=== PATIENT | female | born 1960 | race Caucasian/White ===

== ENCOUNTER 2019-03-24 08:37 | Inpatient (IN) ==
[2019-03-15 20:45] LABS: Basophils # (Auto) 0.08 K/mcL (0.00-0.30); Basophils % (Auto) 0.7 % (0.0-2.0); Eosinophils # (Auto) 0.09 K/mcL (0.00-0.70); Eosinophils % (Auto) 0.7 % (0.0-7.0); Granulocytes % (Auto) 72.9 % (38.0-78.0); Hematocrit 40.5 % (34.1-44.9); Hemoglobin 12.9 g/dL (11.2-15.7); Lymphocytes # (Auto) 2.43 K/mcL (1.50-4.80); Mean Cell Volume 95.7 fL (80.0-100.0); Mean Corpuscular HGB Conc 31.9 g/dL (31.0-36.0); Monocytes # (Auto) 0.69 K/mcL (0.10-0.90); Monocytes % (Auto) 5.7 % (1.0-12.0); Platelet Count 395 K/mcL (140-440); RBC 4.23 M/mcL (3.59-5.38); Red Cell Distribution Width 12.7 % (11.5-14.5); WBC 12.1 K/mcL (4.50-11.00)
[2019-03-15 20:47] LABS: Appearance,Urine CLEAR; Bacteria,Urine 0 /hpf (0); Bilirubin,Urine NEG (NEG); Color,Urine YELLOW; Culture Indicated,Urine NO; Glucose,Urine (UA) NEGATIVE (NEG); Ketones,Urine 5/TR mg/dL (NEG); Leukocyte Esterase,Urine NEG /uL (NEG); Mucus,Urine FEW /hpf (0); Nitrate,Urine POS (NEG); Protein,Urine NEG (NEG); Specific Gravity,Urine 1.018 (1.000-1.035); Urine Blood NEG mg/dL (<0.03); Urine RBC 3 /hpf (0-1); Urine Squamous Epithelial Cell 1 /hpf (0-4); Urine WBC 1 /hpf (0-4); Urobilinogen,Urine NEG (NEG)
[2019-03-15 21:06] LABS: Blood Urea Nitrogen 13 mg/dl (6-20); Calcium 9.5 mg/dl (8.6-10.4); Carbon Dioxide 23 mmol/L (22-30); Chloride 99 mmol/L (96-108); Glomerular Filtration Rate 70; Glucose 128 mg/dL (70-105)
[2019-03-15 21:23] LABS: Estimated Average Glucose(eAG) 97 mg/dL
[~2019-03-24 08:37] MED LIST: 0.9 % SODIUM CHLORIDE 9 ML, KETOROLAC 30 MG, ROPIVACAINE HCL/PF 49.5 ML, EPINEPHrine 0.... IJ SCH; CELECOXIB 200 MG CAPSULE PO SCH; IPRATROPIUM/ALBUTEROL 3 ML AMPUL.NEB NEB PRN; PREGABALIN 75 MG CAPSULE PO SCH; SCOPOLAMINE 1 PATCH PATCH TOPICAL PRN; ceFAZolin 2 GM in DEXTROSE 5% IN WATER 50 ML IV SCH; oxyCODONE 10 MG TAB.ER.12H PO SCH
[2019-03-24] MEDS ORDERED: TRANEXAMIC ACID 1,000 MG/10 ML VIAL IV ONE (12:06)
[2019-03-24] MEDS ORDERED: ePHEDrine 50 MG/ML AMPUL IV ONE (12:06)
[2019-03-24] MEDS ORDERED: ONDANSETRON 4 MG/2 ML VIAL IV ONE (12:06)
[2019-03-24] MEDS ORDERED: KETAMINE 100 MG/ML ML IV ONE (12:06)
[2019-03-24] MEDS ORDERED: LIDOCAINE HCL/PF 100 MG/5 ML SYRINGE IV ONE (12:06)
[2019-03-24] MEDS ORDERED: ROPIVACAINE HCL/PF 20 ML VIAL IJ ONE (12:06)
[2019-03-24] MEDS ORDERED: PROPOFOL 200 MG/20 ML VIAL IV ONE (12:06)
[2019-03-24] MEDS ORDERED: MIDAZOLAM 2 MG/2 ML VIAL IV ONE (12:06)
[2019-03-24] MEDS ORDERED: PHENYLEPHRINE 10 MG/ML VIAL IV ONE (12:06)
[2019-03-24] MEDS ORDERED: DEXAMETHASONE 10 MG/ML VIAL IV ONE (12:06)
[2019-03-24] MEDS ORDERED: ePHEDrine 50 MG/ML AMPUL IV PRN (13:20)
[2019-03-24] MEDS ORDERED: METHOCARBAMOL 1,000 MG/10 ML VIAL IV PRN (13:20)
[2019-03-24] MEDS ORDERED: diphenhydrAMINE 50 MG/ML VIAL IV PRN (13:20)
[2019-03-24] MEDS ORDERED: MEPERIDINE 25 MG/ML SYRINGE IV PRN (13:20)
[2019-03-24] MEDS ORDERED: METOPROLOL TARTRATE 5 MG/5 ML VIAL IV PRN (13:20)
[2019-03-24] MEDS ORDERED: ATROPINE SULFATE 0.4 MG/ML VIAL IV PRN (13:20)
[2019-03-24] MEDS ORDERED: IPRATROPIUM/ALBUTEROL 3 ML AMPUL.NEB NEB PRN (13:20)
[2019-03-24] MEDS ORDERED: ONDANSETRON 4 MG/2 ML VIAL IV PRN ×2 (13:20→13:58)
[2019-03-24] MEDS ORDERED: ACETAMINOPHEN 700 MG/70 ML BOTTLE IV ONE (13:20)
[2019-03-24] MEDS ORDERED: NALOXONE HCL 0.4 MG/ML VIAL IV PRN (13:20)
[2019-03-24] MEDS ORDERED: fentaNYL 100 MCG/2 ML VIAL IV PRN (13:20)
[2019-03-24] MEDS ORDERED: LACTATED RINGERS 1,000 ML IV SCH (13:30)
[2019-03-24] MEDS ORDERED: TRANEXAMIC ACID 1,000 MG/10 ML VIAL IV SCH (13:58)
[2019-03-24] MEDS ORDERED: POLYETHYLENE GLYCOL 3350 17 GM PACKET PO PRN (13:58)
[2019-03-24] MEDS ORDERED: MAGNESIUM HYDROXIDE 30 ML ORAL.SUSP PO PRN (13:58)
[2019-03-24] MEDS ORDERED: BENZOCAINE/MENTHOL 1 LOZENGE PO PRN (13:58)
[2019-03-24] MEDS ORDERED: FLEETS ADULT ENEMA PR PRN (13:58)
[2019-03-24] MEDS ORDERED: BISACODYL 10 MG SUPP.RECT PR PRN (13:58)
[2019-03-24] MEDS ORDERED: HYDROmorphone 2 MG/ML VIAL IV PRN (13:58)
--- NOTE | 2019-03-24 13:58 | Brief Operative Note ---
Date of procedure: 03/24/19 Pre-op diagnosis: Left knee DJD Post-op diagnosis: same Procedure: Left robotic assisted total knee arthroplasty Grafts/Implants: Yes (Cara Triathlon 1 CR femur, 2 tibia, 9mm insert, 33 patella) Anesthesia: spinal, GLMA Findings: possible bone infarcts Complications: none Surgeon: Peter Oates Leave Manager: Martinez Markham Estimated blood loss (cc): 30 Specimens Removed/Pathology: none sent Condition: stable Disposition: PACU
[2019-03-24] MEDS ORDERED: traMADol 50 MG TABLET PO PRN (14:02)
[2019-03-24] MEDS ORDERED: METHOCARBAMOL 750 MG TABLET PO PRN (14:02)
[2019-03-24] MEDS ORDERED: ALBUTEROL SULFATE 1 PUFF INHALER INH PRN (14:02)
[2019-03-24] MEDS ORDERED: ESTRADIOL CYPIONATE 5 MG/ML ML IM SCH (14:15)
[2019-03-24] MEDS: 0.9 % SODIUM CHLORIDE 1,000 ML IV SCH (15:42)
--- NOTE | 2019-03-24 15:57 | XRay Report ---
CLINICAL INFORMATION: Post-op total knee COMPARISON: None. FINDINGS: Total knee prostheses is anatomically aligned. No osseous abnormality. IMPRESSION: Negative Interpreted and Authenticated by: Fabian Blair 03/24/19
[2019-03-24] MEDS: 0.9 % SODIUM CHLORIDE 10 ML SYRINGE IV SCH ×2 (16:01→20:54)
[2019-03-24] MEDS: oxyCODONE HCL 5 MG TABLET PO PRN ×2 (16:27→20:49)
[2019-03-24] MEDS: PANTOPRAZOLE 40 MG TABLET PO SCH (17:21)
[2019-03-24] MEDS: KETOROLAC 30 MG/ML VIAL IV SCH (17:22)
[2019-03-24] MEDS: VIT A,C & E/LUTEIN/MINERALS TABLET PO SCH (20:50)
[2019-03-24] MEDS: ASPIRIN 81 MG TAB.CHEW PO SCH (20:50)
[2019-03-24] MEDS: ceFAZolin 1 GM VIAL IV SCH (20:50)
[2019-03-24] MEDS: DOCUSATE SODIUM 100 MG CAPSULE PO SCH (20:50)
[2019-03-24] MEDS ORDERED: rOPINIRole 1 MG TABLET PO SCH (21:00)
[2019-03-24] MEDS ORDERED: MONTELUKAST 10 MG TABLET PO SCH (21:00)
[2019-03-24] MEDS ORDERED: SENNOSIDES 1 TABLET PO SCH (21:00)
[2019-03-24] MEDS ORDERED: traZODone HCL 100 MG TABLET PO SCH (21:00)
[2019-03-25] MEDS: KETOROLAC 30 MG/ML VIAL IV SCH ×2 (00:03→05:07)
[2019-03-25] MEDS: oxyCODONE HCL 5 MG TABLET PO PRN ×3 (00:03→07:07)
[2019-03-25] MEDS: 0.9 % SODIUM CHLORIDE 1,000 ML IV SCH (03:09)
[2019-03-25] MEDS: ceFAZolin 1 GM VIAL IV SCH (03:42)
[2019-03-25] MEDS: 0.9 % SODIUM CHLORIDE 10 ML SYRINGE IV SCH (05:08)
--- NOTE | 2019-03-25 06:44 | Orthopedic Progress Note ---
Subjective Patient information: Note initiated : 03/25/19 at 6:42 am Service Date, if different from initiated Date: [] Patient: Shira Gil 58 y/o F admitted on 03/24/19 for Left Robotic Total Knee Arthroplasty, POD#[address] Oates. Overall doing well this AM, denies CP, SOB, fevers/chills, N/V, abd pain. Has been up ambulating with PT. Pain is managed. Chief Complaint: left knee pain. Pertinent ROS: negative except per HPI. Objective Vital signs: Vital Signs Temp Pulse Pulse Resp BP BP Pulse Ox 03/25/19 03:42 97.9 F 97 H 14 111/69 92 03/24/19 23:56 97.9 F 91 H 14 102/70 94 03/24/19 20:56 89 03/24/19 19:19 16 91 03/24/19 18:19 98.0 F 89 12 108/62 90 03/24/19 18:17 90 108/62 90 03/24/19 17:30 96.8 F L 82 16 87/47 91 03/24/19 17:11 64 117/75 03/24/19 16:56 79 107/71 90 03/24/19 15:35 97.0 F 77 16 115/73 89 L 03/24/19 15:17 97.0 F 79 11 L 108/70 98 03/24/19 15:07 78 13 108/70 90 03/24/19 14:57 78 12 114/64 98 03/24/19 14:47 75 10 L 121/65 95 03/24/19 14:37 77 10 L 103/58 100 03/24/19 14:32 77 11 L 108/60 100 03/24/19 14:27 79 12 122/65 100 03/24/19 14:22 97.8 F 79 12 128/65 100 03/24/19 09:00 97.7 F 74 16 158/92 95 Intake and Output 03/24/19 03/25/19 03/25/19 21:59 05:59 13:59 Intake Total 2270 750 Output Total 1500 1200 Balance 770 -450 Intake: IV 70 Oral 800 750 IV - Manual Only 1400 Output: Urine Catheter Amount 700 Void Amount 700 1200 Estimated Blood Loss 100 Other: Urine Appearance Clear Clear Straight Clear Urine Color Bright Yellow Bright Yellow Straight Pale Urine Odor Normal Normal Weight 110 lb Intake & Output: Intake & Output 03/24/19 03/25/19 03/25/19 21:59 05:59 13:59 Intake Total 2270 750 Output Total 1500 1200 Balance 770 -450 Weight 110 lb Intake: IV 70 Oral 800 750 IV - Manual Only 1400 Output: Urine Catheter Amount 700 Void Amount 700 1200 Estimated Blood Loss 100 Other: Urine Appearance Clear Clear Straight Clear Urine Color Bright Yellow Bright Yellow Straight Pale Urine Odor Normal Normal Incision: Yes clean and dry Dressing: Yes clean, Yes dry, Yes intact Weight bearing status: as tolerated Neurological exam IM: Yes alert, Yes oriented X3 Extremities exam IM: No calf tenderness, Yes normal capillary refill, Yes normal inspection, No Marine's sign, Yes Foot pink and warm, Yes neurovascular intact - Labs CBC & BMP: 03/15/19 16:12 03/15/19 16:11 Labs: 03/15/19 16:12 Hgb 12.9 Hct 40.5 Assessment and Plan (1) S/P total knee arthroplasty Status: Acute - Narrative A/P Narrative: Pt is a 58 yo female POD#1 s/p Left Robotic Total Knee Arthroplasty with Dr. Oates. --change to silver dressing before discharge. --PT/OT: WBAT with assistive device --continue pain medications --continue diet --prophy: SCDs, IS, ambulation --dispo: likely home today.
--- NOTE | 2019-03-25 06:47 | Discharge Summary ---
Providers - Providers Patient information: Note initiated : 03/25/19 at 6:46 am Service Date, if different from initiated Date: [] Patient: Shira Gil 58 y/o F admitted on 03/24/19 for Left Robotic Total Knee Arthroplasty. Chief Complaint: Left knee pain. Date of admission: 03/24/19 Discharge date: 03/25/19 Hospitalization Discharge diagnosis: s/p left total knee arthroplasty Exam - Exam Incision healing: Yes Incision draining: No Clean and dry: Yes Weight bearing status: as tolerated Range of motion: full Ortho Discharge - TKA - Patient Instructions Diet: Regular Diet Activity: activity as tolerated, ambulate with assistive device Total Knee Protocol: For Total Knee: Start ROM PETER with stationary bike or rocking chair. Work on gaining full extension of knee. Apply Cryocuff as instructed. Dressing Care: Aquacel Ag - leave on for 5 days (OK to shower with silver dressing in place.) - Problem Maintenance (1) S/P total knee arthroplasty Status: Acute - Follow Up Plan Follow Up Appointments: Mendel Kingston PA-C [Physician [facility]] - 04/08/19 1:00 pm Disposition: Home, Self-Care Prognosis: Good Rehab Potential: Good Overall status at discharge: patient is progressing back to baseline - Orders For Discharge Prescriptions: Aspirin 81 mg PO BID 14 Days tab.chew Docusate Sodium [Colace] 100 mg PO BID #60 cap Transmission Status: Received by [facility] oxyCODONE HCL [Roxicodone] 1 - 2 tab PO Q4HP PRN #60 tab PRN Reason: Pain Level 3-6 Prescription Printed Additional Discharge Orders: Physical Therapy at Discharge - TKA Location: None Selected Walker Location: None Selected Pending Studies Resuscitation Status Full Code Diet Regular Diet Start FriMar 24 135 Aspirin (Aspirin) 81 mg PO BID [facility] Last Admin: 03/24/19 20:50 Dose: 81 mg Documented by: OBINSON Docusate Sodium (Colace) 100 mg PO BID [facility] Last Admin: 03/24/19 20:50 Dose: 100 mg Documented by: PRIYA Hydromorphone HCl (Dilaudid) 0 mg IV Q2HP PRN; Protocol PRN Reason: PAIN LEVEL > 6 Last Admin: 03/24/19 15:42 Dose: 0.5 mg Documented by: FMF Sodium Chloride (Sodium Chloride 0.9%) 1,000 mls @ 75 mls/hr IV .[id number] [facility] Last Admin: 03/25/19 03:09 Dose: Not Given Documented by: Admin: 03/24/19 15:42 Dose: 75 mls/hr Documented by: SIMON Ketorolac Tromethamine (Toradol) 30 mg IV Q6 [facility] Stop: 03/26/19 12:01 Last Admin: 03/25/19 05:07 Dose: 30 mg Documented by: Admin: 03/25/19 00:03 Dose: 30 mg Documented by: Admin: 03/24/19 17:22 Dose: 30 mg Documented by: SIMON Montelukast Sodium (Singular) 10 mg PO [facility] Last Admin: 03/24/19 20:50 Dose: 10 mg Documented by: PRIYA Multivitamins/Minerals (Ocuvite) 1 tab PO BID [facility] Last Admin: 03/24/19 20:50 Dose: 1 tab Documented by: PRIYA Oxycodone HCl (Roxicodone) 0 mg PO Q4HP PRN; Protocol PRN Reason: PAIN LEVEL 3-6 Last Admin: 03/25/19 03:42 Dose: 10 mg Documented by: Admin: 03/25/19 00:03 Dose: 10 mg Documented by: Admin: 03/24/19 20:49 Dose: 10 mg Documented by: Admin: 03/24/19 16:27 Dose: 10 mg Documented by: SIMON Pantoprazole Sodium (Protonix) 40 mg PO BIDAC [facility] Last Admin: 03/24/19 17:21 Dose: 40 mg Documented by: SIMON Ropinirole HCl (Requip) 2 mg PO [facility] Last Admin: 03/24/19 20:50 Dose: 2 mg Documented by: PRIYA Senna (Senokot) 2 tab PO [facility] Last Admin: 03/24/19 20:48 Dose: 2 tab Documented by: PRIYA Sodium Chloride (Saline Flush) 10 ml IV Q8 [facility] Last Admin: 03/25/19 05:08 Dose: 10 ml Documented by: Admin: 03/24/19 20:54 Dose: Not Given Documented by: Admin: 03/24/19 16:01 Dose: Not Given Documented by: SIMON Trazodone HCl (Desyrel) 100 mg PO HS [facility] Last Admin: 03/24/19 20:50 Dose: 100 mg Documented by: PRIYA Shift Summary 03/25/19 02:47 Shift Summary by Mayra Willett Pt is A&O x4 able to make needs known. Pt voiding QS without difficulties. Pt ambulated to NSG station and back without difficulties. Dressing to knee is CDI. Pain controlled with Roxicodone 10mg q4hrs. Pt also receiving Toradol. IV will be SL. Pt is using cryo and AV boots. Should discharge home today. Will update with verbal report. Initialized on 03/25/19 02:47 - END OF NOTE
[2019-03-25] MEDS: PANTOPRAZOLE 40 MG TABLET PO SCH (07:36)
--- NOTE | 2019-03-25 07:36 | Operative Note ---
DATE OF OPERATION: 03/24/2019 PREOPERATIVE DIAGNOSIS: Left knee degenerative joint disease. POSTOPERATIVE DIAGNOSIS: Left knee possible bone infarct with degenerative joint disease. PROCEDURE PERFORMED: Left robotic-assisted total knee arthroplasty placing a [place] Triathlon size 1 cruciate retaining femoral component, a size 2 tibial baseplate, 9 mm X3 tibial insert with a 33 mm patellar button. SURGEON: Peter Oates MD CONE WORKER: Martinez Markham PA-C. This provider's expertise and technical skill were required throughout the case. The PA assisted with preoperative coordination, intraoperative retraction, wound closure, dressing and splint application, as well as postoperative documentation and care coordination. ANESTHESIA: Spinal plus general. DRAINS: None. SPECIMENS: Bone cuts, which were discarded. BLOOD LOSS: 30 mL POSTOPERATIVE CONDITION: Stable. INDICATIONS FOR SURGERY: This is a 58-year-old female who has had longstanding progressive worsening left knee pain. She has history of multiple prior surgical procedures. X-rays showed abnormal bony changes. FINDINGS AT SURGERY: There was abnormal bone, which appeared to be possibly bony infarcts. Post- implantation showed satisfactory limb alignment, patellar tracking, and joint stability. PROCEDURE IN DETAIL: The patient had been seen preoperatively. Informed consent had been obtained after discussion of risks and benefits of surgery. Risks including, but not limited to, bleeding, possibly requiring transfusion; infection, possibly requiring implant removal and prolonged IV antibiotics; injury to nerves, blood vessels, and other surrounding structures; anesthetic risks; incomplete or no resolution of symptoms; swelling; stiffness; pain; instability; DVT and pulmonary embolus risks; and the possibility of needing further revision joint surgery. Patient understood and wished to proceed. Correct operative site was marked in preoperative holding, and patient was taken to the operating room and general anesthesia was induced. The left lower extremity was then prepped and draped in normal sterile fashion, and a timeout was performed verifying patient name, operative site, and plan. Ioban was placed over all skin surfaces and an Esmarch was used to exsanguinate the extremity, and tourniquet was inflated to 300 mmHg. A midline incision was made with a scalpel through skin and subcutaneous tissue, then IrriSept was irrigated and a medial parapatellar arthrotomy was made, and then a subperiosteal exposure was done of the anterior medial tibia. Anterior horns of the menisci were removed, as well as retropatellar fat pad. ACL was transected. We then did a resection of the patella freehand, premeasuring thickness and then placing a cut protector after. We then placed our femoral and tibial checkpoints, and then a scalpel was used to make two stab incisions over the femur and two over the tibia and bicortical pins placed. The arrays were connected. The green probe was used to identify medial and lateral malleoli and double-checks were made with the green probe of the femoral and tibial check points. Blue probe was then used to do our mapping. A rongeur was used to remove osteophytes. We then used the spoons to check our flexion-extension gaps and made adjustments to get as close to 17 mm gaps on all four numbers as possible. Once this was completed, we then used the robotic arm to make our bone cuts. The tibia was prepared with the boss reamer and keel punch and externally rotated as bone coverage would allow. A keeled tibial trial was placed, and the femur was elevated. Curved osteotome and curet were used to remove posterior osteophytes. Femoral trial was then impacted and pinned into place. This was placed flush along the lateral cortex of the femur and then peg holes were drilled. A 9 insert trial was placed and then the knee was taken into extension. We then prepared the patella medializing maximally and sized this to a 33 patella. We then checked the patellar tracking and it was stable. We then removed trial implants. Definitive implants were opened while the joint was irrigated with IrriSept. After waiting a minute, we pulse lavaged with saline. Antibiotic cement was mixed and then the cancellous bone surfaces were dried with the CO2 gun. We then cemented the tibia, followed by the femur. Excess cement was removed, and the trial insert was placed, and the knee was taken into extension. The patella was then cemented. After excess cement was removed, we filled the joint with IrriSept. The tibial and femoral check points were removed. The extension was checked and then we removed our arrays and our pins. We injected pain cocktail in the pericapsular and subcutaneous tissues. Once cement had fully hardened, we flexed the knee up. We removed the insert trial, injected pain cocktail in the posteromedial capsule. We then opened a 1 mm CR insert, and this was carefully impacted and verified to be fully seated. The knee was then placed in extension and filled with IrriSept. After a minute it was copiously pulse lavaged with saline. We then flexed the knee to 45 degrees of flexion. A #2 FiberWire [id number] was used around the superior quadrant of the patella, #1 Vicryl [id number] around the inferior quadrant. Running #1 Vicryl was used for patellar tendon and quad tendon. Final IrriSept irrigation was done, after a minute final pulse lavage, and then 2-0 Monocryl was used for subcutaneous and gregory for skin. Xeroform and sterile dressing were applied. Tourniquet was released. The patient was awakened, extubated, and transferred to recovery in stable condition. [id number]:milla Job ID: [id number] Doc ID: [id number] Peter Oates MD
[2019-03-25] MEDS ORDERED: VITAMIN D3 1,000 UNIT TABLET PO SCH (09:00)
[2019-03-25] MEDS ORDERED: VITAMIN B COMPLEX 1 CAPSULE PO SCH (09:00)
[2019-03-25] MEDS ORDERED: CETIRIZINE 10 MG TABLET PO SCH (09:00)
[2019-03-25] MEDS ORDERED: ASCORBIC ACID 500 MG TABLET PO SCH (09:00)
[2019-03-25] MEDS ORDERED: TIOTROPIUM BROMIDE 18 MCG INHALANT INH SCH (09:00)
[2019-03-25] MEDS: VIT A,C & E/LUTEIN/MINERALS TABLET PO SCH (09:12)
[2019-03-25] MEDS: ASPIRIN 81 MG TAB.CHEW PO SCH (09:12)
[2019-03-25] MEDS: DOCUSATE SODIUM 100 MG CAPSULE PO SCH (09:13)
== END 2019-03-25 10:50 | disposition home or self-care (01) | DRG 470 ==
LOC: MEDSUR 08:37
PROVIDERS: ADMIT Orthopaedic Surgery; ATTEND Orthopaedic Surgery